=== PATIENT | female | born 1940 | race Caucasian/White ===

== ENCOUNTER 2021-05-22 10:17 | Emergency (ER) | payer MEDICARE, BC ==
--- NOTE | 2021-05-22 11:00 | EDM.PDOC ---
ED HPI GENERAL MEDICAL PROBLEM - General Chief Complaint: Abdominal Pain Stated Complaint: STOMACH PAIN Time Seen by Provider: 05/22/21 10:45 Source of Information: Reports: Patient History Limitations: Reports: No Limitations - History of Present Illness INITIAL COMMENTS - FREE TEXT/NARRATIVE: This 81 yo female patient reports to the ED due to right upper quadrant and right flank pain that started this morning at 0100. The patient reports she has had 3 small bowel movements today with no symptom relief. The patient reports she did have similar symptoms about 6 weeks ago that resolved without treatment. The patient denies any trauma or recent falls. The patient reports she did take Tylenol earlier today with no symptom relief. Onset: Today Onset Date: 05/22/21 Onset Time: 01:00 Duration: Constant Location: Reports: Abdomen (RUQ), Back (Right flank) Quality: Reports: Ache Severity: Moderate Improves with: Reports: None Worsens with: Reports: None Context: Reports: Other Associated Symptoms: Reports: Other Treatments [employer]: Reports: Acetaminophen - Related Data Allergies Allergy/AdvReac Type Severity Reaction Status Date / Time No Known Allergies Allergy Verified 05/22/21 10:41 Home Meds: Home Meds FA/Lycopene/Lut/MV,Ca,Iron,Min [Centrum] 1 tab PO DAILY 05/22/21 [History] Lutein/Minerals/Vit A,C & E [Ocuvite] 1 tab PO DAILY 05/22/21 [History] ED ROS GENERAL - Review of Systems Review Of Systems: Comprehensive ROS is negative, except as noted in HPI. ED EXAM, GI/ABD - Physical Exam Exam: See Below Exam Limited By: No Limitations General Appearance: Alert, WD/WN, Mild Distress Eyes: Bilateral: Normal Appearance, EOMI Ears: Normal External Exam, Hearing Grossly Normal, Other (Bilateral hearing aids, right canal obstructed with cerumen) Nose: Normal Inspection, Normal Mucosa, No Blood Throat/Mouth: Normal Inspection, Normal Lips, Normal Teeth, Normal Gums, Normal Oropharynx, Normal Voice, No Airway Compromise Head: Atraumatic, Normocephalic Neck: Normal Inspection, Supple, Non-Tender, Full Range of Motion Respiratory/Chest: No Respiratory Distress, Lungs Clear, Normal Breath Sounds, No Accessory Muscle Use, Chest Non-Tender Cardiovascular: Normal Peripheral Pulses, Regular Rate, Rhythm, No Edema, No Gallop, No JVD, No Murmur, No Rub GI/Abdominal Exam: Normal Bowel Sounds, No Organomegaly, No Distention, No Abnormal Bruit, No Mass, Pelvis Stable, Tender (RUQ mild with palpation) (Female) Exam: Deferred Rectal (Female) Exam: Deferred Back Exam: Normal Inspection, Full Range of Motion, NT Extremities: Normal Inspection, Normal Range of Motion, Non-Tender, Normal Capillary Refill, No Pedal Edema Neurological: Alert, Oriented, CN II-XII Intact, Normal Cognition, Normal Gait, Normal Reflexes, No Motor/Sensory Deficits Psychiatric: Normal Affect, Normal Mood Skin Exam: Warm, Dry, Intact, Normal Color, No Rash Lymphatic: No Adenopathy Course - Vital Signs Last Recorded V/S: Last Vital Signs Temp 98.9 F 05/22/21 10:30 Pulse 66 05/22/21 10:30 Resp 16 05/22/21 10:30 BP 129/76 05/22/21 10:30 Pulse Ox 99 05/22/21 10:30 - Orders/Labs/Meds Orders: Active Orders 24 hr Category Date Time Status Abdomen Ltd [US] Urgent Exams 05/22/21 12:41 Ordered Labs: Laboratory Tests 05/22/21 05/22/21 05/22/21 Range/Units 10:37 10:58 10:58 WBC 9.0 (5.0-10.0) 10^3/uL RBC 4.25 (4.2-5.4) 10^6/uL Hgb 12.7 (12.0-16.0) g/dL Hct 38.7 (37.0-47.0) % MCV 91.1 (80-100) fL MCH 29.9 (27.0-34.0) pg MCHC 32.8 L (33.0-35.0) g/dL Plt Count 258 (150-450) 10^3/uL Neut % (Auto) 84.0 H (42.2-75.2) % Lymph % (Auto) 9.3 L (20.5-50.1) % [place] % (Auto) 6.1 (2-8) % Eos % (Auto) 0.4 L (1.0-3.0) % Baso % (Auto) 0.2 (0.0-1.0) % Sodium 137 (136-145) mmol/L Potassium 4.2 (3.5-5.1) mmol/L Chloride 100 (98-107) mmol/L Carbon Dioxide 27 (21-32) mmol/L Anion Gap 14.2 H (7-13) mEq/L BUN 16 (7-18) mg/dL Creatinine 0.74 (0.55-1.02) mg/dL Est Cr Clr Drug Dosing TNP Estimated GFR (MDRD) > 60 BUN/Creatinine Ratio 21.6 (No establ ref range) Glucose 125 H (70-99) mg/dL Calcium 8.8 (8.5-10.1) mg/dL Total Bilirubin 0.4 (0.2-1.0) mg/dL AST 19 (15-37) U/L ALT 22 (14-59) U/L Alkaline Phosphatase 90 (46-116) U/L Total Protein 7.5 (6.4-8.2) g/dL Albumin 4.2 (3.4-5.0) g/dL Globulin 3.3 Albumin/Globulin Ratio 1.3 Amylase 41 (25-115) U/L Lipase 78 (73-393) U/L Urine Color Yellow (YELLOW) Urine Appearance Slightly cloudy (CLEAR) Urine pH 8.0 (5.0-9.0) Ur Specific [place] 1.020 (1.005-1.030) Urine Protein Negative (NEGATIVE) Urine Glucose (UA) Negative (NEGATIVE) Urine Ketones 15 H (NEGATIVE) Urine Occult Blood Trace-intact H (NEGATIVE) Urine Nitrite Negative (NEGATIVE) Urine Bilirubin Negative (NEGATIVE) Urine Urobilinogen 1.0 (0.2-1.0) mg/dL Ur Leukocyte Esterase Negative (NEGATIVE) Urine RBC 0-5 /HPF Urine WBC Not seen (0-5/HPF) /HPF Ur Epithelial Cells Rare (NOT SEEN) /HPF Amorphous Sediment Moderate H (NOT SEEN) /HPF Urine Other See note Meds: Medications Discontinued Medications Generic Name Dose Route Start Last Admin Trade Name Freq PRN Reason Stop Dose Admin Tramadol HCl 50 mg 05/22/21 13:18 05/22/21 13:51 Tramadol 50 Mg Tab PO 05/22/21 13:19 50 mg ONETIME ONE Administration Departure - Departure Time of Disposition: 14:49 Disposition: Home, Self-Care 01 Condition: Fair Clinical Impression: Cholelithiases Qualifiers: Cholelithiasis location: gallbladder Cholecystitis presence: without cholecystitis Biliary obstruction: without biliary obstruction Qualified Code(s): K80.20 - Calculus of gallbladder without cholecystitis without obstruction - Discharge Information *PRESCRIPTION DRUG MONITORING PROGRAM REVIEWED*: Not Applicable *COPY OF PRESCRIPTION DRUG MONITORING REPORT IN PATIENT CHRISTOPHER: Not Applicable Instructions: Cholelithiasis, [id number] Forms: ED Department Discharge Care Plan Goals: The patient and family were advised of the examination, lab, CT and Ultrasound results during the visit. The patient was discharged with a script for Tramadol (50 mg) #12 to take 1 by mouth every 6 hours as needed for pain. The patient was given an oral dose of Tramadol while in the ED. The patient was encouraged to follow-up with her primary care facility for continued evaluation and management. If the patient has any additional symptoms or concerns, the patient was encouraged to either return to the emergency department or visit her primary care facility. Sepsis Event Note (ED) - Focused Exam Vital Signs: Vital Signs Temp Pulse Resp BP Pulse Ox 05/22/21 10:30 98.9 F 66 16 129/76 99 - My Orders Last 24 Hours: My Active Orders 05/22/21 12:41 Abdomen Ltd [US] Urgent - Assessment/Plan Last 24 Hours: My Active Orders 05/22/21 12:41 Abdomen Ltd [US] Urgent
[2021-05-22 11:23] LABS: ANION GAP 14.2 mEq/L (7-13); CHLORIDE,CL 100 mmol/L (98-107); SODIUM,NA 137 mmol/L (136-145)
--- NOTE | 2021-05-22 12:47 | CT ---
EXAMINATION: Abdomen Pelvis wo Cont SEX: Female AGE: 81 years CLINICAL HISTORY: 81-year-old 127 pound female with upper abdominal, right flank pain. No previous exams immediately available at this institution. Hematuria. Normal white WBC. Scan technique: Volume acquisition of data emergency unenhanced CT scan of the abdomen/pelvis (renal stone study) while patient was lying supine on the Siemens multislice scanner [place], [place]. All data archived in the PACS system for storage, reformatting axial/sagittal/coronal planes and study. Interpretation: 1. *Distended gallbladder (RUQ) with irregular mucosal surface (polyps versus cholesterolosis or noncalcified stones. Gallbladder ultrasound suggested. No dilatation of intra/extrahepatic biliary ducts. Radiopaque tablets in the duodenum. 2. Stomach, spleen, atrophic pancreas and adrenal glands anatomically correct. Osteoporosis. 3. Symmetric normal reniform size, axis and configuration. No renal calcifications and no sign of obstructive uropathy i.e. no pyelocaliectasis or ureterectasis. No inflammatory scarring smoothly corticated kidneys. 4. Densely calcified "cast" normal caliber aortoiliac vessels. No aneurysm or dissection. Senescent uterus with extensive periuterine and pelvic calcifications. (Urinary bladder partially obscured by "artifact" total right hip prosthesis) 5. Sigmoid diverticulosis. There are also diverticula scattered across the transverse colon without inflammation. 6. Normal appendix RLQ. No pelvic or abdominal mass lesion. No mesenteric or retroperitoneal lymphadenopathy, inflammatory "dirty" peritoneal fat, signs of mechanical bowel obstruction, ascites or free air. 7. Lung bases clear. No pericardial or pleural effusions. CONCLUSION: Distended gallbladder (see above). Sigmoid diverticulosis. Atheromatous degenerative changes.
[2021-05-22] MEDS ORDERED: traMADol 50 MG Tab PO ONE (13:18)
--- NOTE | 2021-05-25 10:58 | US ---
EXAMINATION: Abdomen Ltd SEX: Female AGE: 81 years CLINICAL HISTORY: 81-year-old 127 pound female right upper quadrant pain and "distended gallbladder" reported on CT exam 22 May. Interpretation: Abnormal. Multiple intraluminal echogenic foci with characteristic wall "shadowing" gallstones. Distended gallbladder right upper quadrant has a thickened wall (3.2 mm). Homogeneous normal density of the liver without sign of discrete intrahepatic cystic or solid mass lesion. No abnormal dilatation of the intra or extrahepatic biliary ducts (common hepatic duct 4 mm; common bile duct 5.2 mm). Sonographically normal pancreas. No ascites or pleural effusions. CONCLUSION: Diseased gallbladder.
== END 2021-05-22 15:00 | disposition home or self-care (01) ==
LOC: DL.ED 10:17
DX: K80.20 Calculus of gallbladder without cholecystitis without obstruction (principal)
CPT/HCPCS: 36415; 74176; 76705; 80053; 81001; 82150; 83690; 85025; 99284; A9270

== ENCOUNTER 2022-10-02 12:52 | Emergency (ER) | payer MEDICARE, BC ==
[2022-10-02] MEDS ORDERED: Sodium Chloride 0.9% 10 ML Syringe FLUSH PRN (13:25)
[2022-10-02] MEDS ORDERED: Clopidogrel 75 MG Tab PO ONE (13:29)
[2022-10-02] MEDS ORDERED: Heparin Sodium 5,000 Units/ML Vial IVPUSH ONE (13:29)
[2022-10-02] MEDS ORDERED: Aspirin 81 MG Tab.Chew PO ONE (13:29)
[2022-10-02] MEDS ORDERED: Nitroglycerin/D5W 25 MG/250 ML BOTTLE IV SCH (13:30)
[2022-10-02] MEDS ORDERED: Heparin Sodium/0.45% NaCl 25,000 UNITS/500 ML BAG IV SCH (13:30)
[2022-10-02 14:02] LABS: ANION GAP 13.4 mEq/L (7-13)
[2022-10-02 14:10] LABS: PTT,PARTIAL THROMBOPLSTIN TIME 21.9 SEC (22.0-34.0)
== END 2022-10-02 14:06 ==
LOC: DL.ED 12:52
DX: I21.3 ST elevation (STEMI) myocardial infarction of unspecified site (principal); Z20.822 Contact with and (suspected) exposure to COVID-19
CPT/HCPCS: 36415; 71045; 80053; 83880; 84484; 85025; 85610; 85730; 93005; 96365; 96368; 96375; 99285; A9270; J1644; J3490